=== PATIENT | male | born 1970 | race Hispanic/Latino ===

== ENCOUNTER → 2024-11-20 | Outpatient (CLI) | payer BC, SELFPAY ==
--- NOTE | 2024-11-20 15:42 | MRI_ITS ---
EXAM: MRI neck with and without contrast. CLINICAL HISTORY: Reported left neck mass. COMPARISON: None TECHNIQUE: Multiplanar multisequence MRI of the neck with and without contrast. 20 cc IV Clariscan was administered. FINDINGS: Lymph nodes: No cervical lymphadenopathy by size, number or morphologic criteria. Small nonspecific lymph nodes are scattered throughout the neck. Aerodigestive tract: The nasal cavities, naso-oropharynx, pharyngeal mucosal space, laryngeal structures and infraglottic trachea are within normal limits. Soft tissues: In the region of the palpable abnormality, however, there is a 4.0 x 5.9 x 4.3 cm T1 and T2 nonenhancing hypointense mass with internal septations, compatible with a lipoma (series 9 image 15, series 7 image 14 and series 10 image 13. No other suspicious mass or abnormal foci of enhancement is noted. Major salivary glands: Within normal limits. Thyroid gland: Within normal limits. Carotid space: Patent bilateral extracranial carotid and jugular systems. Intracranial contents: Imaged portions within normal limits. Paranasal sinuses, middle ears, mastoids: Clear. Orbits: Within normal limits. Bones: No suspicious osseous lesions in the imaged calvarium, skull base and spine. Normal cervicothoracic alignment. No significant spondylotic changes. Temporomandibular joints are maintained. MRI/Orbit Face Neck W/WO Contrast IMPRESSION: 4 x 5.9 x 4.3 cm left lower neck mass lipoma, in the region of palpable abnorma lity. No suspicious adenopathy. Reading [facility]
== END | disposition home or self-care (01) ==
LOC: MRI 15:16
PROVIDERS: Referring Provider Plastic Surgery; Visit Provider Plastic Surgery
DX: D48.19 Other specified neoplasm of uncertain behavior of connective and other soft tissue (principal)
CPT/HCPCS: 70543; A9575